=== PATIENT | female | born 1995 | race Caucasian/White ===

== ENCOUNTER 2021-09-04 10:13 | Emergency (ER) | payer BC ==
[~2021-09-04] VITALS: Ht 177.8 cm; Wt 72.1 kg
--- NOTE | 2021-09-04 10:15 | NUR ---
BIB SELF C/O BILATERAL FLANK PAIN AND BLOOD IN THE STOOL STARTED YESTERDAY. PLACED COMFORTABLY IN BED. VITALS CHECKED.
--- NOTE | 2021-09-04 10:26 | NUR ---
URINE SPECIMEN SENT TO LAB
[2021-09-04] MEDS ORDERED: ONDANSETRON HCL/PF 4 MG/2 ML VIAL IVP ONE (10:30)
[2021-09-04] MEDS ORDERED: ACETAMINOPHEN ES 500 MG TABLET PO ONE (10:30)
[2021-09-04] MEDS ORDERED: IV NS 0.9% 1,000 ML BAG IV ONE (10:30)
[2021-09-04] MEDS ORDERED: ONDANSETRON HCL/PF 4 MG/2 ML VIAL ONE (10:45)
[2021-09-04 10:47] LABS: BILIRUBIN,URINE NEGATIVE (NEGATIVE); COLOR,URINE YELLOW (YELLOW); LEUKOCYTE ESTERASE ,URINE NEGATIVE (NEGATIVE); NITRITE, URINE NEGATIVE (NEGATIVE); PH,URINE 6.5 (5.0-8.0); PROTEIN,URINE NEGATIVE (NEGATIVE); UGLUCOSE NEGATIVE (NEGATIVE); UROBILINOGEN,URINE 0.2 EU/dL (0.2)
[2021-09-04 10:57] LABS: RBC,URINE 0-2 /HPF (0-2); WBC,URINE 0-2 /HPF (0-3)
[2021-09-04 10:58] LABS: BACTERIA,URINE Rare /HPF (None Seen); SQUAMOUS EPITHELIAL CELL,UR 0-2 /HPF (None Seen)
[2021-09-04] MEDS ORDERED: ACETAMINOPHEN ES 500 MG TABLET ONE (11:01)
[2021-09-04 11:03] LABS: BASOPHILS # (AUTO) 0.1 K/uL (0.0-0.2); BASOPHILS % (AUTO) 0.9 % (0.0-2.0); EOSINOPHILS % (AUTO) 0.2 % (0.0-6.0); HEMATOCRIT 38 % (33-45); HEMOGLOBIN 12.9 g/dL (11.5-14.8); LYMPHOCYTES # (AUTO) 1.4 K/uL (0.8-4.8); LYMPHOCYTES % (AUTO) 13.1 % (20.0-44.0); MEAN CORPUSCULAR HGB CONC 34 g/dl (31.0-36.0); MEAN CORPUSCULAR VOLUME 84 fL (82-100); MONOCYTES # (AUTO) 0.9 K/uL (0.1-1.30); MONOCYTES % (AUTO) 8.7 % (2.0-12.0); NEUTROPHILS # (AUTO) 8.4 K/uL (1.8-8.9); NEUTROPHILS % (AUTO) 77.1 % (43.0-81.0); PLATELET COUNT (AUTO) 380 K/uL (150-450); RED BLOOD CELL COUNT(AUTO) 4.54 MIL/uL (4.0-5.2); WHITE BLOOD COUNT (AUTO) 10.8 K/uL (4.3-11.0)
[2021-09-04 11:16] LABS: ALBUMIN 3.7 g/dL (3.4-5.0); BILIRUBIN,DIRECT 0.1 mg/dL (0.0-0.2); BILIRUBIN,TOTAL 0.4 mg/dL (0.2-1.0); CREATININE 0.7 mg/dL (0.6-1.3); POTASSIUM 2.9 mmol/L (3.5-5.1); TOTAL PROTEIN, SERUM 7.3 g/dL (6.4-8.2)
[2021-09-04 11:16] LABS: OCCULT BLOOD STOOL NEGATIVE (NEGATIVE)
--- NOTE | 2021-09-04 11:31 | NUR ---
PATIENT BEING WHEELED TO RADIOLOGY DEPARTMENT FOR CT SCAN
[2021-09-04] MEDS ORDERED: IBUP-1955 PO (13:49)
[2021-09-04] MEDS ORDERED: ONDA4TAB5 PO (13:49)
[2021-09-04] MEDS ORDERED: AMOX-430 PO (13:49)
--- NOTE | 2021-09-04 14:23 | NUR ---
Patient discharged to home in stable condition. Written and verbal after care instructions given. Patient verbalizes understanding of instruction.
--- NOTE | 2021-09-04 14:23 | NUR ---
IV CANNULA REMOVED
[2021-09-04 14:24] VITALS: BP 127/82
== END 2021-09-04 14:25 | disposition home or self-care (01) ==
LOC: ER 10:16
DX: K52.89 Other specified noninfective gastroenteritis and colitis (principal); R10.84 Generalized abdominal pain; R11.2 Nausea with vomiting, unspecified; R19.7 Diarrhea, unspecified; E87.6 Hypokalemia; R82.4 Acetonuria; F41.9 Anxiety disorder, unspecified; Z87.39 Personal history of other diseases of the musculoskeletal system and connective tissue; Z60.2 Problems related to living alone
CPT/HCPCS: 36415; 74176; 80048; 80076; 81001; 82272; 83690; 84703; 85025; 96374; 99284; J2405